=== PATIENT | female | born 1980 | race African-American/Black ===

== ENCOUNTER 2016-06-29 14:45 | Emergency (ER) | payer MEDICAID, OTHER ==
[~2016-06-29] VITALS: Ht 160 cm; Wt 89.0 kg
[~2016-06-29 14:45] MED LIST: GABA100C4 PO; NAPR250T57 PO; ORPH100T PO; PRED20 PO; TRAM50 PO; ULTR50TA PO
[2016-06-29 14:48] VITALS: BP 132/86; PULSE 84; RESP 12; TEMP 97.5; O2SAT 99
--- NOTE | 2016-06-29 16:54 | PD ---
HPI Chief Complaint: Numbness/Tingling Time Seen by Provider: 16:50 Travel History International Travel<30 days: No Contact w/Intl Traveler<30days: No Traveled to known affect area: No History of Present Illness HPI 35 year-old female with no significant medical history presents to emergency department for evaluation. Patient states over the last 3 days the left side of her body has been "numb." She states that it's tingling. She states most concerning is that her left upper extremity feels heavy and cold. She also feels as though her left lower extremity sciatica has been worse. She denies any preceding injury. She has not had any headache, nausea, or vomiting. She denies chest pain or tightness. She has had no difficulty breathing. She reports no other focal deficits or weakness. No history of stroke. No recent illnesses. Patient has no other symptoms to report. [facility] Past Medical History Medical History: Denies Significant Hx Diminished Hearing: No Respiratory: Yes (HX OF BRONCHITIS) Immunizations Current: Yes ?: Not LMP: 06/15/16 : 3 Para: 3 Past Surgical History Section: Yes Gynecologic Surgery: Yes (C SECTION x1) Social History Alcohol Use: No Tobacco Use: No Substance Use: No Allergies-Medications (Allergen,Severity, Reaction): Coded Allergies: Erythromycin (Verified Allergy, Severe, Rash, 06/29/16) Reported Meds & Prescriptions Reported Meds & Active Scripts Active Review of Systems Except as stated in HPI: all other systems reviewed are Neg Physical Exam Narrative GENERAL: Well-nourished female patient, ambulatory in no acute distress SKIN: Warm and dry. HEAD: Atraumatic. Normocephalic. EYES: Pupils equal and round. No scleral icterus. No injection or drainage. ENT: No nasal bleeding or discharge. Mucous membranes pink and moist. NECK: Trachea midline. No JVD. CARDIOVASCULAR: Regular rate and rhythm. No murmur appreciated. RESPIRATORY: No accessory muscle use. Clear to auscultation. Breath sounds equal bilaterally. GASTROINTESTINAL: Abdomen soft, non-tender, nondistended. Hepatic and splenic margins not palpable. MUSCULOSKELETAL: No obvious deformities. No clubbing. No cyanosis. No edema. Equal strength bilateral extremities. NEUROLOGICAL: Awake and alert. Patient reports altered sensation in the left side of her face when cranial nerves are assessed, otherwise no obvious cranial nerve deficit. Motor grossly within normal limits. Normal speech. PSYCHIATRIC: Appropriate mood and affect; insight and judgment normal. Data Data Last Documented VS Vital Signs Date Time Temp Pulse Resp B/P Pulse Ox O2 Delivery O2 Flow Rate FiO2 06/29/16 14:48 97.5 84 12 132/86 99 Room Air Orders Complete Blood Count With Diff (06/29/16 16:44) Basic Metabolic Panel (Bmp) (06/29/16 16:44) Urinalysis - C+S If Indicated (06/29/16 16:44) Ed Urine Pregnancytest Poc (06/29/16 16:44) Ct Brain W/O Iv Contrast(Rout) (06/29/16 ) Ct Cerv Spine W/O Contrast (06/29/16 ) Electrocardiogram (06/29/16 ) Troponin I (06/29/16 16:44) Ckmb (Isoenzyme) Profile (06/29/16 16:44) CKMB (06/29/16 17:24) CKMB% (06/29/16 17:24) Labs Laboratory Tests Test 06/29/16 06/29/16 17:24 17:44 White Blood Count 6.3 TH/MM3 Red Blood Count 5.28 MIL/MM3 Hemoglobin 10.9 GM/DL Hematocrit 34.0 % Mean Corpuscular Volume 64.4 FL Mean Corpuscular Hemoglobin 20.6 PG Mean Corpuscular Hemoglobin 32.1 % Concent Red Cell Distribution Width 21.0 % Platelet Count 356 TH/MM3 Mean Platelet Volume 8.5 FL Neutrophils (%) (Auto) 45.9 % Lymphocytes (%) (Auto) 41.7 % Monocytes (%) (Auto) 9.2 % Eosinophils (%) (Auto) 2.7 % Basophils (%) (Auto) 0.5 % Neutrophils # (Auto) 2.9 TH/MM3 Lymphocytes # (Auto) 2.6 TH/MM3 Monocytes # (Auto) 0.6 TH/MM3 Eosinophils # (Auto) 0.2 TH/MM3 Basophils # (Auto) 0.0 TH/MM3 CBC Comment AUTO DIFF Sodium Level 139 MEQ/L Potassium Level 4.0 MEQ/L Chloride Level 104 MEQ/L Carbon Dioxide Level 26.7 MEQ/L Anion Gap 8 MEQ/L Blood Urea Nitrogen 14 MG/DL Creatinine 1.13 MG/DL Estimat Glomerular Filtration 66 ML/MIN Rate Random Glucose 81 MG/DL Calcium Level 8.7 MG/DL Total Creatine Kinase 135 U/L Troponin I LESS THAN 0.02 NG/ML Urine Color LIGHT-YELLOW Urine Turbidity HAZY Urine pH 5.0 Urine Specific [place] 1.009 Urine Protein NEG mg/dL Urine Glucose (UA) NEG mg/dL Urine Ketones 10 mg/dL Urine Occult Blood NEG Urine Nitrite NEG Urine Bilirubin NEG Urine Urobilinogen LESS THAN 2.0 MG/DL Urine Leukocyte Esterase NEG Urine RBC 1 /hpf Urine WBC LESS THAN 1 /hpf Urine Squamous Epithelial 3 /hpf Cells Urine Mucus FEW /lpf Microscopic Urinalysis Comment CULT NOT INDICATED MDM Medical Decision Making Medical Screen Exam Complete: Yes Emergency Medical Condition: Yes Medical Record Reviewed: Yes Differential Diagnosis Paresthesias versus TIA versus CVA versus radicular symptoms versus cardiac etiology versus electrolyte abnormality versus viral syndrome Narrative Course 35 year-old female presents to the emergency department for evaluation. Workup is initiated in triage. Once a medical bed becomes available, patient will be transferring care assumed by that provider. Condition: Stable Phylicia Bermeo Jun 29, 2016 16:53
[2016-06-29 18:23] LABS: AUTOMATED NEUTROPHIL # 2.9 TH/MM3 (1.8-7.7); BASOPHIL % 0.5 % (0.0-2.0); EOSINOPHIL # 0.2 TH/MM3 (0-0.4); EOSINOPHIL % 2.7 % (0.0-4.0); LYMPH % 41.7 % (9.0-44.0); LYMPHOCYTE # 2.6 TH/MM3 (1.0-4.8); MEAN CELL VOLUME 64.4 FL (80.0-100.0); MEAN CORPUSCULAR HEMOGLOBIN 20.6 PG (27.0-34.0); MEAN CORPUSCULAR HGB CONC 32.1 % (32.0-36.0); MONO % 9.2 % (0.0-8.0); NEUT % 45.9 % (16.0-70.0); PLATELET COUNT 356 TH/MM3 (150-450); RED BLOOD COUNT 5.28 MIL/MM3 (4.00-5.30); WHITE BLOOD COUNT 6.3 TH/MM3 (4.0-11.0)
[2016-06-29 18:24] LABS: HEMO FLAGS AUTO DIFF
[2016-06-29 18:34] LABS: BLOOD, URINE NEG (NEG); COMMENT (UR) CULT NOT INDICATED; CULTURE IF INDICATED CULT NOT INDICATED; GLUCOSE,URINE NEG (NEG); KETONE, URINE 10 mg/dL (NEG); MUCUS URINE FEW /lpf (OCC); NITRITE,URINE NEG (NEG); SQUAMOUS EPITHELIAL CELL URINE 3 /hpf (0-5); URINE COLOR LIGHT-YELLOW (YELLW/STRAW)
[2016-06-29 18:46] LABS: ANION GAP 8 MEQ/L (5-15); BICARBONATE 26.7 MEQ/L (21.0-32.0); BLOOD UREA NITROGEN 14 MG/DL (7-18); CHLORIDE 104 MEQ/L (98-107); GLOMERULAR FILTRATION RATE 66 ML/MIN (>89); SODIUM (NA) 139 MEQ/L (136-145)
[2016-06-29 18:51] LABS: CREATINE KINASE 135 U/L (26-192)
--- NOTE | 2016-06-29 18:51 | RADRPT ---
EXAM DATE/TIME: 06/29/2016 18:25 [facility] COMPARISON: No previous studies available for comparison. INDICATIONS : Numbness and tingling in left upper extremity for three days with pain. RADIATION DOSE: 54.12 CTDIvol (mGy) MEDICAL HISTORY : None SURGICAL HISTORY : None. ENCOUNTER: Initial ACUITY: 3 days PAIN SCALE: 8/10 LOCATION: cranial TECHNIQUE: Multiple contiguous axial images were obtained of the head. Using automated exposure control and adj ustment of the mA and/or kV according to patient size, radiation dose was kept as low as reasonably a chievable to obtain optimal diagnostic quality images. FINDINGS: CEREBRUM: The ventricles are normal for age. No evidence of midline shift, mass lesion, hemorrhage or acute in farction. No extra-axial fluid collections are seen. POSTERIOR FOSSA: The cerebellum and brainstem are intact. The 4th ventricle is midline. The cerebellopontine angle i s unremarkable. EXTRACRANIAL: The visualized portion of the orbits is intact. SKULL: The calvaria is intact. No evidence of skull fracture. CONCLUSION: No acute disease. Jadon Sanabria MD FACR on June 29, 2016 at 18:46 Board Certified Radiologist. This report was verified electronically.
[2016-06-29 18:53] LABS: PLATELET ESTIMATE SMEAR NORMAL (NORMAL); PLATELET MORPHOLOGY NORMAL (NORMAL); SCAN/DIFF AUTO DIFF CONFIRMED; TARGET CELLS 1+ (NORMAL)
--- NOTE | 2016-06-29 18:53 | RADRPT ---
EXAM DATE/TIME: 06/29/2016 18:25 [facility] COMPARISON: No previous studies available for comparison. INDICATIONS : Numbness and tingling in left upper extremity for three days with pain. RADIATION DOSE: 28.66 CTDIvol (mGy) MEDICAL HISTORY : None SURGICAL HISTORY : None. ENCOUNTER: Initial ACUITY: 3 days PAIN SCALE: 8/10 LOCATION: neck TECHNIQUE: Volumetric scanning of the cervical spine was performed. Multiplanar reconstructions i n the sagittal, coronal and oblique axial planes were performed. Using automated exposure control a nd adjustment of the mA and/or kV according to patient size, radiation dose was kept as low as reason ably achievable to obtain optimal diagnostic quality images. FINDINGS: VERTEBRAE: Normal vertebral body height. ALIGNMENT: No evidence of subluxation. C2-C3: The bony spinal canal is normal in size. No evidence of disc bulge or herniation. The neura l foramina are bilaterally patent. C3-C4: The bony spinal canal is normal in size. No evidence of disc bulge or herniation. The neura l foramina are bilaterally patent. C4-C5: The bony spinal canal is normal in size. No evidence of disc bulge or herniation. The neura l foramina are bilaterally patent. C5-C6: The bony spinal canal is normal in size. No evidence of disc bulge or herniation. The neura l foramina are bilaterally patent. C6-C7: The bony spinal canal is normal in size. No evidence of disc bulge or herniation. The neura l foramina are bilaterally patent. C7-T1: The bony spinal canal is normal in size. No evidence of disc bulge or herniation. The neura l foramina are bilaterally patent. CONCLUSION: Negative for fracture. Given the patient's size patient size disc herniation cannot be excluded. Jadon Sanabria MD FACR on June 29, 2016 at 18:50 Board Certified Radiologist. This report was verified electronically.
[2016-06-29 19:03] LABS: CKMB 0.5 NG/ML (0.5-3.6)
--- NOTE | 2016-06-29 19:17 | PD ---
Physical Exam Date Seen by Provider: Jun 29, 2016 Time Seen by Provider: 19:16 Narrative Patient was seen previously in the triage area, with labs and CT scan ordered. Medical records reviewed showing a 3 day history of left-sided neck pain and radiculopathy symptoms of the left arm without history of injury. Patient states she has been taking ibuprofen and Tylenol without improvement. Patient states her left arm feels like pins and needles from the shoulder down, it feels cold, and heavy. Patient states her symptoms are improved if she places her left hand on top of her head. She is allergic to erythromycin. Data Data Last Documented VS Vital Signs Date Time Temp Pulse Resp B/P Pulse Ox O2 Delivery O2 Flow Rate FiO2 06/29/16 14:48 97.5 84 12 132/86 99 Room Air Orders Complete Blood Count With Diff (06/29/16 16:44) Basic Metabolic Panel (Bmp) (06/29/16 16:44) Urinalysis - C+S If Indicated (06/29/16 16:44) Ed Urine Pregnancytest Poc (06/29/16 16:44) Ct Brain W/O Iv Contrast(Rout) (06/29/16 ) Ct Cerv Spine W/O Contrast (06/29/16 ) Electrocardiogram (06/29/16 ) Troponin I (06/29/16 16:44) Ckmb (Isoenzyme) Profile (06/29/16 16:44) CKMB (06/29/16 17:24) CKMB% (06/29/16 17:24) Mri Brain W&W/O Contrast (06/29/16 19:00) Mri C Spine W/O Contrast (06/29/16 19:00) Iv Access Insert/Monitor (06/29/16 19:22) Ketorolac Inj (Toradol Inj) (06/29/16 19:30) Dexamethasone Inj (Decadron Inj) (06/29/16 19:30) Gadodiamide Pf Inj (Omniscan Pf Inj) (06/29/16 21:09) Labs Laboratory Tests Test 06/29/16 06/29/16 17:24 17:44 White Blood Count 6.3 TH/MM3 Red Blood Count 5.28 MIL/MM3 Hemoglobin 10.9 GM/DL Hematocrit 34.0 % Mean Corpuscular Volume 64.4 FL Mean Corpuscular Hemoglobin 20.6 PG Mean Corpuscular Hemoglobin 32.1 % Concent Red Cell Distribution Width 21.0 % Platelet Count 356 TH/MM3 Mean Platelet Volume 8.5 FL Neutrophils (%) (Auto) 45.9 % Lymphocytes (%) (Auto) 41.7 % Monocytes (%) (Auto) 9.2 % Eosinophils (%) (Auto) 2.7 % Basophils (%) (Auto) 0.5 % Neutrophils # (Auto) 2.9 TH/MM3 Lymphocytes # (Auto) 2.6 TH/MM3 Monocytes # (Auto) 0.6 TH/MM3 Eosinophils # (Auto) 0.2 TH/MM3 Basophils # (Auto) 0.0 TH/MM3 CBC Comment AUTO DIFF Differential Comment AUTO DIFF CONFIRMED Platelet Estimate NORMAL Platelet Morphology Comment NORMAL Target Cells 1+ Sodium Level 139 MEQ/L Potassium Level 4.0 MEQ/L Chloride Level 104 MEQ/L Carbon Dioxide Level 26.7 MEQ/L Anion Gap 8 MEQ/L Blood Urea Nitrogen 14 MG/DL Creatinine 1.13 MG/DL Estimat Glomerular Filtration 66 ML/MIN Rate Random Glucose 81 MG/DL Calcium Level 8.7 MG/DL Total Creatine Kinase 135 U/L Creatine Kinase MB 0.5 NG/ML Troponin I LESS THAN 0.02 NG/ML Urine Color LIGHT-YELLOW Urine Turbidity HAZY Urine pH 5.0 Urine Specific [place] 1.009 Urine Protein NEG mg/dL Urine Glucose (UA) NEG mg/dL Urine Ketones 10 mg/dL Urine Occult Blood NEG Urine Nitrite NEG Urine Bilirubin NEG Urine Urobilinogen LESS THAN 2.0 MG/DL Urine Leukocyte Esterase NEG Urine RBC 1 /hpf Urine WBC LESS THAN 1 /hpf Urine Squamous Epithelial 3 /hpf Cells Urine Mucus FEW /lpf Microscopic Urinalysis Comment CULT NOT INDICATED MDM Medical Record Reviewed: Yes Supervised Visit with LAKHWINDER: Yes Differential Diagnosis Atypical migraine. Neuralgia. Radiculopathy. Cervical disc herniation. Narrative Course Labs were reviewed and shown to be normal. CT of the neck and head are normal but MRI commended by radiologist. MRI of the head and neck is ordered with IV contrast. IV access is obtained patient is given 10 mg Decadron IV as well as 30 mg Toradol IV. MRI of the head and neck are both within normal limits per radiologist. Patient is reassessed after the Decadron and Toradol with mild relief. Patient is felt to be stable at home with prescription for ibuprofen 800 mg 3 times a day #30. Patient also given extra strength Tylenol 2 tabs every 6 hours when necessary # 60. Patient is also given Norflex 100 mg one every 12 hours when necessary muscle spasm #10. Patient is encouraged to move the shoulder and use heat and stretching as discussed. Patient should follow-up with her primary care physician or return to emergency department if worsening symptoms develop. Diagnosis Primary Impression: Torticollis, spasmodic Additional Impression: Radiculopathy affecting upper extremity Referrals: Primary Care Physician Patient Instructions: General Instructions, Spasmodic Torticollis (ED) Additional Instruction: MRI of the head and neck are both within normal limits per radiologist. Patient is reassessed after the Decadron and Toradol with mild relief. Patient is felt to be stable at home with prescription for ibuprofen 800 mg 3 times a day #30. Patient also given extra strength Tylenol 2 tabs every 6 hours when necessary # 60. Patient is also given Norflex 100 mg one every 12 hours when necessary muscle spasm #10. Patient is encouraged to move the shoulder and use heat and stretching as discussed. Patient should follow-up with her primary care physician or return to emergency department if worsening symptoms develop. Med/Other Pt SpecificInfo: Prescription(s) given Scripts Orphenadrine ER 12 HR (Orphenadrine CR)100 Mg [id number] Mg PO Q12HR #10 TAB Prov:Elle Pandya MD 06/29/16 Ibuprofen 800 Mg [id number] Mg PO Q8H PRN (Pain/Inflammation) #30 TAB Prov:Elle Pandya MD 06/29/16 Acetaminophen (Acetaminophen Extra Strength)500 Mg Cap1,000 Mg PO Q6H PRN (PAIN SCALE 4 TO 10) #60 CAP Ref 1 Prov:Elle Pandya MD 06/29/16 Disposition: 01 DISCHARGE HOME Condition: Stable Jose Hoffmann Jun 29, 2016 19:17
[2016-06-29] MEDS ORDERED: DEXAMETHASONE SOD PHOS 20 MG/5 ML VIAL IV PUSH ONE (19:30)
[2016-06-29] MEDS ORDERED: KETOROLAC TROMETHAMINE 30 MG/ML (IVP) VIAL IVP ONE (19:30)
--- NOTE | 2016-06-29 20:29 | PD ---
Physical Exam Date Seen by Provider: Jun 29, 2016 Time Seen by Provider: 20:00 Narrative Patient presents with left arm discomfort. Data Data Last Documented VS Vital Signs Date Time Temp Pulse Resp B/P Pulse Ox O2 Delivery O2 Flow Rate FiO2 06/29/16 14:48 97.5 84 12 132/86 99 Room Air Orders Complete Blood Count With Diff (06/29/16 16:44) Basic Metabolic Panel (Bmp) (06/29/16 16:44) Urinalysis - C+S If Indicated (06/29/16 16:44) Ed Urine Pregnancytest Poc (06/29/16 16:44) Ct Brain W/O Iv Contrast(Rout) (06/29/16 ) Ct Cerv Spine W/O Contrast (06/29/16 ) Electrocardiogram (06/29/16 ) Troponin I (06/29/16 16:44) Ckmb (Isoenzyme) Profile (06/29/16 16:44) CKMB (06/29/16 17:24) CKMB% (06/29/16 17:24) Mri Brain W&W/O Contrast (06/29/16 19:00) Mri C Spine W/O Contrast (06/29/16 19:00) Iv Access Insert/Monitor (06/29/16 19:22) Ketorolac Inj (Toradol Inj) (06/29/16 19:30) Dexamethasone Inj (Decadron Inj) (06/29/16 19:30) Labs Laboratory Tests Test 06/29/16 06/29/16 17:24 17:44 White Blood Count 6.3 TH/MM3 Red Blood Count 5.28 MIL/MM3 Hemoglobin 10.9 GM/DL Hematocrit 34.0 % Mean Corpuscular Volume 64.4 FL Mean Corpuscular Hemoglobin 20.6 PG Mean Corpuscular Hemoglobin 32.1 % Concent Red Cell Distribution Width 21.0 % Platelet Count 356 TH/MM3 Mean Platelet Volume 8.5 FL Neutrophils (%) (Auto) 45.9 % Lymphocytes (%) (Auto) 41.7 % Monocytes (%) (Auto) 9.2 % Eosinophils (%) (Auto) 2.7 % Basophils (%) (Auto) 0.5 % Neutrophils # (Auto) 2.9 TH/MM3 Lymphocytes # (Auto) 2.6 TH/MM3 Monocytes # (Auto) 0.6 TH/MM3 Eosinophils # (Auto) 0.2 TH/MM3 Basophils # (Auto) 0.0 TH/MM3 CBC Comment AUTO DIFF Differential Comment AUTO DIFF CONFIRMED Platelet Estimate NORMAL Platelet Morphology Comment NORMAL Target Cells 1+ Sodium Level 139 MEQ/L Potassium Level 4.0 MEQ/L Chloride Level 104 MEQ/L Carbon Dioxide Level 26.7 MEQ/L Anion Gap 8 MEQ/L Blood Urea Nitrogen 14 MG/DL Creatinine 1.13 MG/DL Estimat Glomerular Filtration 66 ML/MIN Rate Random Glucose 81 MG/DL Calcium Level 8.7 MG/DL Total Creatine Kinase 135 U/L Creatine Kinase MB 0.5 NG/ML Troponin I LESS THAN 0.02 NG/ML Urine Color LIGHT-YELLOW Urine Turbidity HAZY Urine pH 5.0 Urine Specific [place] 1.009 Urine Protein NEG mg/dL Urine Glucose (UA) NEG mg/dL Urine Ketones 10 mg/dL Urine Occult Blood NEG Urine Nitrite NEG Urine Bilirubin NEG Urine Urobilinogen LESS THAN 2.0 MG/DL Urine Leukocyte Esterase NEG Urine RBC 1 /hpf Urine WBC LESS THAN 1 /hpf Urine Squamous Epithelial 3 /hpf Cells Urine Mucus FEW /lpf Microscopic Urinalysis Comment CULT NOT INDICATED MDM Supervised Visit with LAKHWINDER: Yes Narrative Course I, Dr. Pandya, have reviewed the advance practice practitioner's documentation and am in agreement, met with the patient face to face, made the diagnosis, and the medical decision making was done by me. *My assessment and Findings: This is a healthy-appearing young lady who is able to move her arm without any apparent difficulty. Condition: Stable Elle Pandya MD Jun 29, 2016 20:29
[2016-06-29] MEDS ORDERED: GADODIAMIDE PF 287 MG/ML 20 ML VIAL (for RAD MRI) IV ONE (21:09)
--- NOTE | 2016-06-29 21:48 | RADRPT ---
EXAM DATE/TIME: 06/29/2016 20:41 [facility] COMPARISON: No previous studies available for comparison. INDICATIONS : Left arm numbness and tingling. CONTRAST: 18 cc Omniscan (gadodiamide) IV MEDICAL HISTORY : None. SURGICAL HISTORY : section. ENCOUNTER: Subsequent ACUITY: 3 day PAIN SCORE: 0/10 LOCATION: head TECHNIQUE: Multiplanar, multisequence MRI of the brain was performed both prior to and following the administrat ion of paramagnetic contrast. FINDINGS: There is no restricted diffusion. Ventricles are normal size. There is no parenchymal hemorrhage, carol effect or midline shift. Ther e are no extra-axial fluid collections appreciated. Following intravenous administration of gadolinium there no abnormal contrast advancement. Ventricular size is appropriate. Midline structures are intact. CONCLUSION: Negative MRI of the brain without and with contrast. Jadon Sanabria MD FACR on June 29, 2016 at 21:20 Board Certified Radiologist. This report was verified electronically.
--- NOTE | 2016-06-29 21:50 | RADRPT ---
EXAM DATE/TIME: 06/29/2016 20:41 [facility] COMPARISON: No previous studies available for comparison. INDICATIONS : Left arm numbness and tingling for 3 days. No known injury. MEDICAL HISTORY : None. SURGICAL HISTORY : section. ENCOUNTER: Subsequent ACUITY: 3 day PAIN SCORE: 2/10 LOCATION: Left neck. TECHNIQUE: Multiplanar, multisequence MRI examination of the cervical spine was performed. FINDINGS: By MRI the marrow signal in the cervical vertebrae appear homogeneous and normal. Signal intensity i n the cervical cord is normal. C2-C3: The thecal sac has a normal configuration. There is no evidence of disc herniation or spinal canal s tenosis. The neural foramina are patent bilaterally. C3-C4: The thecal sac has a normal configuration. There is no evidence of disc herniation or spinal canal s tenosis. The neural foramina are patent bilaterally. C4-C5: The thecal sac has a normal configuration. There is no evidence of disc herniation or spinal canal s tenosis. The neural foramina are patent bilaterally. C5-C6: The thecal sac has a normal configuration. There is no evidence of disc herniation or spinal canal s tenosis. The neural foramina are patent bilaterally. C6-C7: The thecal sac has a normal configuration. There is no evidence of disc herniation or spinal canal s tenosis. The neural foramina are patent bilaterally. C7-T1: The thecal sac has a normal configuration. There is no evidence of disc herniation or spinal canal s tenosis. The neural foramina are patent bilaterally. CONCLUSION: Negative MRI of the cervical spine. I do not see an etiology for the patient's numbn ess and tingling in the fingers. Jadon Sanabria MD FACR on June 29, 2016 at 21:14 Board Certified Radiologist. This report was verified electronically.
[2016-06-29] MEDS ORDERED: ORPH100T99 PO (21:58)
[2016-06-29] MEDS ORDERED: EXTR500C PO (21:58)
[2016-06-29] MEDS ORDERED: IBUP800T23 PO (21:58)
--- NOTE | 2016-06-30 20:30 | EKG ---
Date Performed: 06/29/2016 Time Performed: 17:21:04 PTAGE: 35 years EKG: Sinus rhythm WITH SINUS ARRHYTHMIA NORMAL ECG PREVIOUS TRACING : 09/11/2015 12.12 Compared to prior tracing no significant change DOCTOR: Joann Maloney Interpretating Date/Time 06/30/2016 20:29:27
== END 2016-06-29 22:37 | disposition home or self-care (01) ==
LOC: NEPC 14:45
DX: M54.2 Cervicalgia (principal); G24.3 Spasmodic torticollis; M54.10 Radiculopathy, site unspecified; R20.2 Paresthesia of skin
CPT/HCPCS: 70450; 70553; 72125; 72141; 80048; 81001; 82550; 82552; 84484; 84703; 85025; 93005; 96374; 96375; 99285; A9579; J1100; J1885

== ENCOUNTER 2016-12-03 15:57 | Emergency (ER) | payer MEDICAID ==
[~2016-12-03] VITALS: Ht 160 cm; Wt 90.0 kg
[~2016-12-03 15:57] MED LIST changes: +EXTR500C PO; -GABA100C4 PO; +IBUP800T23 PO; -NAPR250T57 PO; -ORPH100T PO; +ORPH100T99 PO; -PRED20 PO; -TRAM50 PO; -ULTR50TA PO
[2016-12-03 15:59] VITALS: BP 122/80; PULSE 87; RESP 20; TEMP 98.4; O2SAT 99
--- NOTE | 2016-12-03 16:37 | PD ---
HPI Chief Complaint: Bite or Sting Time Seen by Provider: 16:27 Travel History International Travel<30 days: No Contact w/Intl Traveler<30days: No Traveled to known affect area: No History of Present Illness HPI 36-year-old Afro-[place] female presents the emergency Department with burning rash on the right arm with pain from the neck to the hand. Patient thought she got bit by an insect earlier in the week. The rash has continued to spread and the burning is worse in the last 48 hours. Fever, chills, or other symptoms. She states the rash has come up over the last 48 hours and is spreading only in the left arm. The pain is described as burning and an 8 out of 10. Patient is allergic to erythromycin. PFSH Past Medical History Hx Anticoagulant Therapy: No Cardiovascular Problems: No Chemotherapy: No Cerebrovascular Accident: No Diabetes: No Diminished Hearing: No Respiratory: No Immunizations Current: Yes ?: Not LMP: 11/18/14 : 3 Para: 3 Past Surgical History Section: Yes Gynecologic Surgery: Yes (C SECTION x1) Social History Alcohol Use: No Tobacco Use: No Substance Use: No Allergies-Medications (Allergen,Severity, Reaction): Coded Allergies: Erythromycin (Verified Allergy, Severe, Rash, 12/03/16) Reported Meds & Prescriptions Reported Meds & Active Scripts Active Orphenadrine CR (Orphenadrine Citrate) 100 Mg Tab 100 Mg PO Q12HR Ibuprofen 800 Mg Tab 800 Mg PO Q8H PRN Acetaminophen Extra Strength (Acetaminophen) 500 Mg Cap 1,000 Mg PO Q6H PRN Review of Systems Except as stated in HPI: all other systems reviewed are Neg General / Constitutional: No: Fever Eyes: No: Visual changes HENT: No: Headaches Cardiovascular: No: Chest Pain or Discomfort Respiratory: No: Shortness of Breath Gastrointestinal: No: Abdominal Pain Genitourinary: No: Dysuria Musculoskeletal: No: Pain Skin: Positive Rash, Positive Other (burning pain left arm) Neurologic: No: Weakness Psychiatric: No: Depression Endocrine: No: Polydipsia Hematologic/Lymphatic: No: Easy Bruising Physical Exam Narrative GENERAL: Patient appears in no acute distress. SKIN: Warm and dry. Normal color. Normal turgor. Patient has patchy erythematous raised rash along the left arm consistent with shingles. HEAD: Atraumatic. Normocephalic. EYES: Pupils equal and round. No scleral icterus. No injection or drainage. ENT: No nasal bleeding or discharge. Mucous membranes pink and moist. Pharynx is clear. Airway is patent. NECK: Trachea midline. Supple and nontender CARDIOVASCULAR: Regular rate and rhythm. RESPIRATORY: No accessory muscle use. Clear to auscultation. Breath sounds equal bilaterally. MUSCULOSKELETAL: Extremities without clubbing, cyanosis, or edema. No obvious deformities. NEUROLOGICAL: Awake and alert. No obvious cranial nerve deficits. Motor grossly within normal limits. Five out of 5 muscle strength in the arms and legs. Normal speech. PSYCHIATRIC: Appropriate mood and affect; insight and judgment normal. Data Data Last Documented VS Vital Signs Date Time Temp Pulse Resp B/P Pulse Ox O2 Delivery O2 Flow Rate FiO2 12/03/16 15:59 98.4 87 20 122/80 99 Room Air MDM Medical Decision Making Medical Screen Exam Complete: Yes Emergency Medical Condition: Yes Differential Diagnosis Herpes zoster. Rash. Nerve pain. Narrative Course Patient is felt to have herpes zoster flare. Patient will be treated with acyclovir 200 mg capsules, 4 capsules 5 times daily for 7 days. Patient is given a prescription for Tylenol 500 mg 2 tabs every 6 hours when necessary pain #60 per Patient can use topical Caladryl lotion to the lesions as discussed Patient should follow with her primary care physician in a week to ensure improvement. She can return the emergency Department with worsening symptoms if necessary. Diagnosis Primary Impression: Shingles outbreak Qualified Code: B02.9 - Herpes zoster without complication Referrals: Primary Care Physician Patient Instructions: General Instructions, Diego (ED) Additional Instructions: Patient is felt to have herpes zoster flare. Patient will be treated with acyclovir 200 mg capsules, 4 capsules 5 times daily for 7 days. Patient is given a prescription for Tylenol 500 mg 2 tabs every 6 hours when necessary pain #60 per Patient can use topical Caladryl lotion to the lesions as discussed Patient should follow with her primary care physician in a week to ensure improvement. She can return the emergency Department with worsening symptoms if necessary. Med/Other Pt SpecificInfo: Prescription(s) given Disposition: DISCHARGE HOME Condition: Stable Jose Hoffmann Dec 03, 2016 16:37
[2016-12-03] MEDS ORDERED: NON-500T13 PO (16:38)
[2016-12-03] MEDS ORDERED: ACYC200C66 PO (16:38)
== END 2016-12-03 16:45 | disposition home or self-care (01) ==
LOC: NEPK 15:57
DX: B02.9 Zoster without complications (principal)
CPT/HCPCS: 99283